=== PATIENT | male | born 1950 | race Caucasian/White ===

== ENCOUNTER 2017-01-13 09:58 | Emergency (ER) | payer MEDICARE ==
[~2017-01-13] VITALS: Ht 177.8 cm; Wt 115.3 kg
[2017-01-13 12:15] VITALS: BP 158/86
== END 2017-01-13 12:18 | disposition home or self-care (01) ==
LOC: ED 11:15
DX: M70.21 Olecranon bursitis, right elbow (principal); I10 Essential (primary) hypertension
CPT/HCPCS: 99284

== ENCOUNTER 2018-02-18 08:24 | Inpatient (IN) | payer MEDICARE, MEDICAID ==
[~2018-02-18] VITALS: Ht 177.8 cm; Wt 123.6 kg
[~2018-02-18 08:24] MED LIST: ASPI-496 PO; BENA20TA2 PO; CHOL10003 PO; CYAN1TAB29 PO; HYDR170P TP; LORA10CA PO; METO25TA35 PO; MULT-658 PO; PROB500T22 PO
[2018-02-18 08:53] VITALS: BP 127/74
[2018-02-18] MEDS ORDERED: VANCOMYCIN PER PHARMACY MC ONE (08:59)
[2018-02-18] MEDS ORDERED: ACETAMINOPHEN 500 MG TABLET PO ONE (09:00)
[2018-02-18] MEDS ORDERED: GABAPENTIN 300 MG CAPSULE PO ONE (09:00)
[2018-02-18] MEDS ORDERED: SCOPOLAMINE PATCH, 1.5MG PATCH.TD72 TD ONE ×2 (09:00→09:08)
[2018-02-18] MEDS ORDERED: MIDAZOLAM 1 MG/ML, 2ML ONE (09:03)
[2018-02-18] MEDS ORDERED: FENTANYL PF 250 MCG/5ML ONE (09:03)
[2018-02-18] MEDS ORDERED: ROPIvacaine/PF 0.2%, 20 ML ONE (09:05)
[2018-02-18] MEDS ORDERED: PROPOFOL 10 MG/ML, 20ML ONE (09:05)
[2018-02-18] MEDS ORDERED: ROCURONIUM 10MG/ML,5ML ONE (09:07)
[2018-02-18] MEDS ORDERED: GLYCOPYRROLATE 0.4 MG/2 ML, 2ML ONE (09:08)
[2018-02-18] MEDS ORDERED: ACETAMINOPHEN 500 MG TABLET ONE (09:08)
[2018-02-18] MEDS ORDERED: NEOSTIGMINE 1 MG/ML, 10ML ONE (09:08)
[2018-02-18] MEDS ORDERED: GABAPENTIN 300 MG CAPSULE ONE (09:09)
[2018-02-18] MEDS ORDERED: WATER-INJECTION,STERILE 10 ML IV ONE (09:09)
[2018-02-18] MEDS ORDERED: CEFAZOLIN 1,000 MG ONE ×2 (09:09)
[2018-02-18] MEDS: LACTATED RINGERS 1,000 ML IV SCH ×3 (09:13→14:43)
[2018-02-18] MEDS ORDERED: VANCOMYCIN 2,000 MG in SODIUM CHLORIDE 0.9% 500 ML IV ONE (09:30)
[2018-02-18] MEDS ORDERED: PHARMACOKINETIC CONSULTATION MC ONE (09:30)
[2018-02-18] MEDS ORDERED: KETOROLAC 60 MG/2 ML ONE (09:58)
[2018-02-18] MEDS ORDERED: TRANEXAMIC ACID 100 MG/ML, 10ML ONE ×2 (09:58)
[2018-02-18] MEDS ORDERED: ROPIvacaine/PF 0.5%, 30 ML ONE (09:59)
[2018-02-18] MEDS ORDERED: EPINEPHRINE 1 MG/ML, 1ML ONE (09:59)
[2018-02-18] MEDS ORDERED: SODIUM CHLORIDE 0.9% 100 ML ONE (09:59)
[2018-02-18] MEDS ORDERED: HYDROmorphone 2 MG/ML, 1ML IV PRN ×2 (10:00→10:30)
[2018-02-18] MEDS ORDERED: ONDANSETRON 2MG/ML, 2ML IV PRN (10:00)
[2018-02-18] MEDS ORDERED: MAGNESIUM HYDROXIDE 8%, 30ML UDC PO PRN (10:00)
[2018-02-18] MEDS ORDERED: ZOLPIDEM 5MG TABLET PO PRN (10:00)
[2018-02-18] MEDS ORDERED: BISACODYL 10 MG SUPP PR PRN (10:00)
[2018-02-18] MEDS ORDERED: DIPHENHYDRAMINE 25 MG CAPSULE PO PRN (10:00)
[2018-02-18] MEDS ORDERED: ACETAMINOPHEN 650 MG/20.3 ML UDC PO PRN (10:00)
[2018-02-18] MEDS ORDERED: SENNA/DOCUSATE TABLET PO PRN (10:00)
[2018-02-18] MEDS ORDERED: OXYcodone IR 5MG TABLET PO PRN (10:00)
[2018-02-18] MEDS ORDERED: ONDANSETRON 4 MG TABLET PO PRN (10:00)
[2018-02-18] MEDS ORDERED: PHENYLEPHRINE 10 MG/ML ONE (10:18)
[2018-02-18] MEDS ORDERED: PROMETHAZINE 25 MG/ML, 1ML IV PRN (10:30)
[2018-02-18] MEDS ORDERED: PROMETHAZINE 25 MG SUPP PR PRN (10:30)
[2018-02-18] MEDS ORDERED: MORPHINE SULFATE 4 MG/ML, 1ML IVPush PRN (10:30)
[2018-02-18] MEDS ORDERED: ONDANSETRON ODT 8 MG PO PRN (10:30)
[2018-02-18] MEDS ORDERED: OXYcodone 5 MG/5 ML ORAL.SOL UDC PO PRN (10:30)
[2018-02-18] MEDS ORDERED: hydrALAzine 20 MG/ML, 1ML IV PRN (10:30)
[2018-02-18] MEDS ORDERED: PROMETHAZINE 12.5 MG SUPP PR PRN (10:30)
[2018-02-18] MEDS ORDERED: LABETALOL 5MG/ML, 20ML IV PRN (10:30)
[2018-02-18] MEDS ORDERED: MEPERIDINE/PF 25MG/0.5ML IVPush PRN (12:00)
[2018-02-18] MEDS ORDERED: SCOPOLAMINE PATCH, 1.5MG PATCH.TD72 TD PRN (12:00)
[2018-02-18] MEDS: FENTANYL PF 100 MCG/2ML IV PRN ×3 (12:11→12:44)
[2018-02-18] MEDS ORDERED: FENTANYL PF 100 MCG/2ML ONE (12:12)
[2018-02-18] MEDS ORDERED: OXYcodone 5 MG/5 ML ORAL.SOL UDC ONE (12:34)
[2018-02-18] MEDS ORDERED: MORPHINE SULFATE 4 MG/ML, 1ML ONE (12:45)
[2018-02-18 14:11] VITALS: BP 113/70
[2018-02-18] MEDS: NS + 20MEQ KCL 1,000 ML IV SCH (14:46)
[2018-02-18] MEDS ORDERED: VANCOMYCIN 1,000 MG ONE (15:38)
[2018-02-18] MEDS: CEFAZOLIN PMX 2GM/50ML 50 ML IVPB SCH ×2 (16:10→20:57)
[2018-02-18] MEDS: HYDROcodone/APAP 5/325 TABLET PO PRN ×2 (16:18→21:10)
[2018-02-18] MEDS: ASPIRIN 81 MG TABLET EC PO SCH (17:45)
[2018-02-18 20:08] VITALS: BP 122/74
[2018-02-18] MEDS: PROBENECID 500 MG TABLET PO SCH (20:56)
[2018-02-18] MEDS: BENAZEPRIL 20 MG TABLET PO SCH (20:56)
[2018-02-18] MEDS: DOCUSATE 100 MG CAPSULE PO SCH (20:57)
[2018-02-18] MEDS: METOPROLOL TARTRATE 25 MG TABLET PO SCH (20:57)
[2018-02-19] MEDS: NS + 20MEQ KCL 1,000 ML IV SCH (00:33)
[2018-02-19 04:23] VITALS: BP 131/89
[2018-02-19] MEDS: ASPIRIN 81 MG TABLET EC PO SCH (05:17)
[2018-02-19] MEDS: HYDROcodone/APAP 5/325 TABLET PO PRN ×2 (05:18→12:02)
[2018-02-19] MEDS ORDERED: DEXAMETHASONE 4 MG/ML, 1ML IVPush SCH (06:00)
[2018-02-19 07:29] VITALS: BP 123/76
[2018-02-19] MEDS: BENAZEPRIL 20 MG TABLET PO SCH (07:38)
[2018-02-19] MEDS: PROBENECID 500 MG TABLET PO SCH (07:38)
[2018-02-19] MEDS: DOCUSATE 100 MG CAPSULE PO SCH (07:38)
[2018-02-19] MEDS: METOPROLOL TARTRATE 25 MG TABLET PO SCH (07:39)
[2018-02-19] MEDS ORDERED: ASPI-621 PO (10:29)
[2018-02-19] MEDS ORDERED: OXYC5CAP2 PO (10:31)
[2018-02-19] MEDS ORDERED: MELO7.5T31 PO (10:32)
[2018-02-19] MEDS ORDERED: TRAM50TA2 PO (10:32)
== END 2018-02-19 12:46 | disposition home health service (06) | DRG 470 ==
LOC: OUT 08:24 → ORIP 09:51 → 5SO 13:25
PROVIDERS: ADMIT Orthopaedic Surgery; ATTEND Orthopaedic Surgery
PROC: 0SRD0J9 Replacement of Left Knee Joint with Synthetic Substitute, Cemented, Open Approach (ICD-10-PCS; principal; 2018-02-18 10:30)
DX: M17.12 Unilateral primary osteoarthritis, left knee (principal); I10 Essential (primary) hypertension; Z88.8 Allergy status to other drugs, medicaments and biological substances; I48.91 Unspecified atrial fibrillation
CPT/HCPCS: 36415; 84550; 85014; 85018; 93005; C1713; J0171; J0690; J1100; J1885; J2250; J2704; J2710; J2795; J3010; J3370; J3480; C1776; J2370; J7040; J7120